=== PATIENT | male | born 2000 | race Two or more races ===

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

== ENCOUNTER 2022-08-24 18:19 | Emergency (ER) | payer MEDICAID ==
[~2022-08-24] VITALS: Ht 175.3 cm; Wt 75.0 kg
[2022-08-24 18:19] VITALS: BP 151/86
[2022-08-24] MEDS ORDERED: IBUP800T26 PO (20:13)
[2022-08-24] MEDS ORDERED: HYDR-4798 PO (20:13)
== END 2022-08-24 22:16 | disposition home or self-care (01) ==
LOC: EDBD 18:19 → ER 18:19
DX: S82.232A Displaced oblique fracture of shaft of left tibia, initial encounter for closed fracture (principal); S82.432A Displaced oblique fracture of shaft of left fibula, initial encounter for closed fracture; V00.311A Fall from snowboard, initial encounter; Y93.23 Activity, snow (alpine) (downhill) skiing, snowboarding, sledding, tobogganing and snow tubing; Y92.89 Other specified places as the place of occurrence of the external cause; Y99.8 Other external cause status
CPT/HCPCS: 29505; 73590; 73610; 73630